=== PATIENT | female | born 1965 | race Caucasian/White ===

== ENCOUNTER 2016-11-09 05:13 | Emergency (ER) | payer OTHER ==
[~2016-11-09] VITALS: Ht 170.2 cm; Wt 68.0 kg
[2016-11-09 06:18] LABS: Basophils # (auto) 0 uL; Basophils % (auto) 0.3 % (0.0-2.0); Eosinophils # (auto) 0.1 uL; Hematocrit 43.1 % (36.0-46.0); Hemoglobin 14.6 g/dL (12.2-16.2); Lymphocytes # (auto) 1.6 uL; Lymphocytes % (auto) 15.8 % (10.0-50.0); Mean Corpuscular Hemoglobin 29.3 pg (28.0-32.0); Mean Corpuscular Volume 86.2 fL (80.0-100.0); Monocytes # (auto) 0.2 uL; Monocytes % (auto) 2.3 % (0.0-12.0); Neutrophils # (auto) 8.3 uL; Neutrophils % (auto) 80.6 % (37.0-80.0); Platelet Count (auto) 277 10^3/uL (140-450); Red Cell Distribution Width 13.5 % (11.6-16.0); White Blood Cell 10.3 10^3/uL (4.4-10.8)
[2016-11-09] MEDS ORDERED: SODIUM CHLORIDE 0.9% 1,000 ML IVB ONE (06:57)
[2016-11-09] MEDS ORDERED: ONDANSETRON HCL 4 MG/2 ML VIAL IV ONE ×2 (07:00→09:45)
[2016-11-09] MEDS ORDERED: KETOROLAC TROMETH 30 MG/ML 1ML VIAL IV ONE (07:00)
[2016-11-09 07:06] LABS: Albumin 3.9 g/dL (3.4-5.0); BUN/Creatinine Ratio 20.5; Bilirubin, Total 0.3 mg/dL (0.2-1.0); Total Protein 7.5 g/dL (6.4-8.2)
[2016-11-09] MEDS ORDERED: HYDROmorphone HCL 2 MG/ML VL ONE (07:08)
[2016-11-09] MEDS ORDERED: HYDROmorphone HCL 2 MG/ML VL IV ONE ×3 (07:15→09:30)
[2016-11-09] MEDS ORDERED: SODIUM CHLORIDE 0.9% 1,000 ML IV SCH (08:26)
[2016-11-09] MEDS ORDERED: cefTRIAXone 1GM/50ML D5W 50 ML IV ONE (08:30)
[2016-11-09] MEDS ORDERED: ACETAMINOPHEN 500 MG TAB PO PRN (08:30)
[2016-11-09] MEDS ORDERED: HYDROcodone-ACET 5/325MG TAB PO PRN (08:30)
[2016-11-09] MEDS ORDERED: TEMAZEPAM 15 MG CAP PO PRN (08:30)
[2016-11-09] MEDS ORDERED: LORazepam 0.5 MG TAB PO PRN (08:30)
[2016-11-09] MEDS ORDERED: MORPHINE SULF INJ 2 MG/ML SYRINGE 1ML IV PRN (08:30)
[2016-11-09] MEDS ORDERED: ONDANSETRON HCL 4 MG/2 ML VIAL IV PRN (08:30)
[2016-11-09 08:58] LABS: Urine Bilirubin Negative (Negative); Urine Color Yellow (Yellow); Urine Glucose Normal (Normal); Urine Ketone Negative (Negative); Urine Mucus FEW (None Seen); Urine Nitrite Negative (Negative); Urine RBC 519 /hpf (0 - 4); Urine Squamous Epithelial Cell FEW /hpf (<5); Urine Urobilinogen Normal (Negative)
[2016-11-09 09:17] LABS: Urine Blood 3+ /uL (Negative)
[2016-11-09] MEDS ORDERED: FAMOTIDINE 20 MG TAB PO SCH (10:00)
[2016-11-09 11:25] VITALS: BP 116/67
[2016-11-10] MEDS ORDERED: cefTRIAXone 1GM/50ML D5W 50 ML IV SCH (09:00)
== END 2016-11-09 11:43 | disposition short-term general hospital (02) ==
LOC: ER 05:17
DX: N20.1 Calculus of ureter (principal); F17.210 Nicotine dependence, cigarettes, uncomplicated; Z98.890 Other specified postprocedural states; Z88.6 Allergy status to analgesic agent; Z91.040 Latex allergy status
CPT/HCPCS: 36415; 71010; 74176; 80053; 81001; 81025; 85025; 87086; 93005; 94761; 96361; 96365; 96366; 96375; 96376; 99285; J0696; J1170; J2270; J2405; J7030; J1885